=== PATIENT | male | born 1945 | race Caucasian/White ===

== ENCOUNTER → 2016-05-27 | Outpatient (CLI) | payer OTHER, MEDICARE ==
[~2016-05-27] MED LIST: ALLEGRA60 MG PO; ALLERGY-CONGES1 EAC3 PO; ALLOPURINOL300 MG PO; AZATHIOPRINE50 MG PO; CLONIDINE HCL0.1 MG PO; CRESTOR10 MG PO; DRISDOL50000 UNIT PO; DURICEF1 GM PO; ELIQUIS5 MG PO; FIBER THERAPY0.52 GM PO; FLUOXETINE HCL20 MG PO; GLIMEPIRIDE4 MG PO; GLUCOSAMINE CH1 EAC2 PO; HYTRIN10 MG PO; IMURAN50 MG PO; INDAPAMIDE2.5 MG PO; INVOKANA100 MG PO; INVOKANA300 MG PO; KLOR-CON M2020 MEQ PO; LANTUS 3 M100 UNITS1 SC; LEVEMIR FL100 UNIT/1 SC; LIPITOR40 MG PO; LISINOPRIL40 MG PO; MAGNESIUM400 MG PO; METFORMIN HCL1000 MG PO; METOPROLOL TART25 MG PO; METROGEL55 GM TP; NEURONTIN300 MG PO; NITROSTAT0.4 MG SL; PENTASA500 MG PO; PRADAXA150 MG PO; TERAZOSIN HCL10 MG PO; VITAMIN D22000 UNIT PO; VITAMIN D35000 UNIT PO; VITAMIN D5000 UNIT PO; WELLBUTRIN XL300 MG PO
== END | disposition home or self-care (01) ==
LOC: NUC 14:09
DX: S91.104A Unspecified open wound of right lesser toe(s) without damage to nail, initial encounter (principal)
CPT/HCPCS: 78315; 78999; A9503

== ENCOUNTER 2016-06-03 06:14 | Outpatient (CLI) | payer OTHER, MEDICARE ==
[2016-06-19] MEDS ORDERED: LISINOPRIL20 MG PO (08:31)
== END 2016-06-04 11:59 | disposition home or self-care (01) ==
LOC: NUC 06:14
DX: L97.519 Non-pressure chronic ulcer of other part of right foot with unspecified severity (principal); E11.621 Type 2 diabetes mellitus with foot ulcer; Z88.1 Allergy status to other antibiotic agents
CPT/HCPCS: 78102; 78805; 78999; A9541; A9570

== ENCOUNTER → 2016-06-03 | Outpatient (CLI) | payer OTHER, MEDICARE | END | disposition home or self-care (01) | LOC: PICC 09:46 | DX: L97.519 Non-pressure chronic ulcer of other part of right foot with unspecified severity (principal); E09.622 Drug or chemical induced diabetes mellitus with other skin ulcer; Z88.8 Allergy status to other drugs, medicaments and biological substances | CPT/HCPCS: 71010; 76937 ==

== ENCOUNTER 2017-01-11 09:51 | Emergency (ER) | payer OTHER, MEDICARE ==
[~2017-01-11] VITALS: Ht 193 cm; Wt 144.9 kg
[~2017-01-11 09:51] MED LIST changes: +LISINOPRIL20 MG PO
[2017-01-11] MEDS ORDERED: LORTAB 5-325 M1 EACH PO (12:03)
[2017-01-11] MEDS ORDERED: DOXYCYCLINE HY100 MG PO (12:03)
[2017-01-11 12:52] VITALS: BP 137/69
== END 2017-01-11 12:53 | disposition home or self-care (01) ==
LOC: EME 09:51
PROC: 2W3CX1Z Immobilization of Right Lower Arm using Splint (ICD-10-PCS; principal; 2017-01-11)
DX: S62.001A Unspecified fracture of navicular [scaphoid] bone of right wrist, initial encounter for closed fracture (principal); S20.219A Contusion of unspecified front wall of thorax, initial encounter; L03.113 Cellulitis of right upper limb; W18.30XA Fall on same level, unspecified, initial encounter; E11.9 Type 2 diabetes mellitus without complications; M21.379 Foot drop, unspecified foot; K50.90 Crohn's disease, unspecified, without complications; Z96.649 Presence of unspecified artificial hip joint; Z79.01 Long term (current) use of anticoagulants; Z79.84 Long term (current) use of oral hypoglycemic drugs
CPT/HCPCS: 71020; 73110; 99281; 99284